=== PATIENT | male | born 1985 | race Caucasian/White ===

== ENCOUNTER 2016-08-02 17:27 | Observation (INO) | payer BC, OTHER ==
[~2016-08-02] VITALS: Ht 180.3 cm; Wt 111.0 kg
[2016-08-02 18:31] LABS: BASO % 0.1 %; BASO ABS # 0.02 K/uL (0-0.2); COMPLETE YES; EOS % 0.1 %; IG% 0.4 %; LYMPH % 8.9 %; MEAN CELL VOLUME 83.2 fL (80-100); MEAN CORPUSCULAR HEMOGLOBIN 29.6 pg (25-34); MEAN CORPUSCULAR HGB CONC 35.5 g/dl (32-36); MEAN PLATELET VOLUME 8.9 fL (7.4-10.4); NEUT % 81.5 %; PLATELET COUNT 332 K/uL (130-400); RED BLOOD COUNT 5.65 M/uL (4.7-6.1); WHITE BLOOD COUNT 16.87 K/uL (4.8-10.8)
[2016-08-02 18:37] LABS: URINE APPEARANCE CLEAR (CLEAR); URINE BILIRUBIN NEG (NEG); URINE COLOR YELLOW; URINE NITRITE NEG (NEG); URINE SPECIFIC GRAVITY 1.014 (1.000-1.030); UROBILINOGEN NEG (NEG); ZZUR CULT IF INDIC CLEAN CATCH NO
[2016-08-02 18:42] LABS: MANUAL MICROSCOPIC REQUIRED? NO; REVIEW REQ? NO
[2016-08-02] MEDS ORDERED: ONDANSETRON INJ 2 MG/ML 2 ML VIAL IV STA (18:46)
[2016-08-02] MEDS ORDERED: SODIUM CHLORIDE 0.9% 1000ML 1,000 ML IV STA ×2 (18:46)
[2016-08-02] MEDS ORDERED: MoRPHine SULFATE 10 MG/ML CARP/VIAL IV STA (18:46)
[2016-08-02 18:49] LABS: BUN/CREATININE RATIO 9.6 (10-20); CALCIUM 9.4 mg/dl (8.5-10.1); CREATININE 0.88 mg/dl (0.60-1.40); POTASSIUM 3.7 mmol/L (3.5-5.1)
[2016-08-02 18:52] LABS: ALB/GLOB RATIO 1.3 (0.9-2)
[2016-08-02] MEDS ORDERED: MoRPHine SULFATE 4 MG/ML 1 ML CARP\\VIAL IV PRN ×2 (19:00→22:30)
[2016-08-02] MEDS ORDERED: OPTIRAY 320 IV PRN (19:00)
--- NOTE | 2016-08-02 19:39 | DIAGNOSTIC IMAGING REPORT ---
ABDOMEN AND PELVIS CT WITH IV CONTRAST CT DOSE: 1124.69 mGycm HISTORY: Pain RLQ PAIN X 1 DAYS TECHNIQUE: Multiaxial CT images of the abdomen and pelvis were performed following the use of intravenous contrast. COMPARISON STUDY: None. FINDINGS: Lung bases are clear. Liver spleen and pancreas are unremarkable. Kidneys enhance uniformly. No evidence for hydronephrosis. Abdominal bowel pattern is nonobstructive. Posterior and somewhat inferior to the cecum is a distended appendix at 1.3 cm. There is moderate periappendiceal infiltrative change. There is no evidence for abscess collection or obstruction. Evaluation of the low pelvis demonstrates bladder to be midline. There is no evidence for abscess or collection. There is trace amount of free fluid most likely reactive. IMPRESSION: 1. Acute appendicitis. 2. Moderate periappendiceal infiltrative change. 3. No evidence for abscess collection or obstruction. Electronically signed by: John Aguero M.D. 08/02/2016 7:38 PM Dictated Date/Time: 08/02/2016 7:36 PM
--- NOTE | 2016-08-02 19:43 | EMERGENCY ROOM VISIT NOTE ---
History First contact with patient: 18:19 Chief Complaint: ABDOMINAL PAIN Stated Complaint: ABDOMINAL PAIN RT SIDE, STABBING PAIN History of Present Illness 31-year-old white male with past medical history significant for hypertension who presents to emergency department for evaluation of right lower quadrant pain 24 hours. He notes a constant, dull aching right lower quadrant pain that started last evening. He had difficulty sleeping last night due to the pain. He states it radiates slightly to the left lower quadrant, and at times can become sharp and stabbing. He notes indigestion and increased belching, although has noticed decreased flatus. He has been nauseous, but has not vomited. Last bowel movement was about 4 hours ago and was normal per the patient. He denies any fever. He tried using Gas-X and Rolaids without relief of his symptoms. He presently rates his discomfort a 6/10. He has a history of stomach problems, states that he was diagnosed with IBS when he was younger. It was advised that he go on Prilosec for his upper GI symptoms, but reports she did not take the medication secondary to cost. He is also prescribed lisinopril/hydrochlorothiazide for hypertension, but stopped this several months ago. He denies any dysuria, frequency or urgency. No hematuria. He denies any melena, hematochezia or diarrhea. Review of Systems Review of systems as per HPI. All other systems reviewed were negative. 10 systems reviewed. Past Medical/Surgical History Medical Problems: (1) Hypertension (2) Stomach problems Surgical Problems: (1) History of tonsillectomy Electronic medical records are reviewed and summarized as above/below. See Problem List. Social History Smoking Status: Never Smoker Alcohol Use: none Marital Status: single Housing Status: lives with family Occupation Status: employed Current/Historical Medications No Active Prescriptions or Reported Meds Allergies Coded Allergies: No Known Allergies (Unverified , 08/02/16) Physical Exam Vital Signs Date Time Temp Pulse Resp B/P (MAP) Pulse Ox O2 Delivery O2 Flow Rate FiO2 08/02/16 19:14 73 16 141/94 97 Room Air 08/02/16 17:31 36.8 89 18 180/103 96 Room Air Physical Exam CONSTITUTIONAL: Patient is a 31-year-old white male who is awake and alert and in mild distress. He is noted to be hypertensive with a blood pressure 180/103. EYES: Pupils equal, round, reactive to light and accommodation. EOMs intact without nystagmus. Sclera are anicteric. ENT: Tympanic membranes intact, with normal landmarks. External canals are clear. Oral and nasopharynx are clear. Mucous membranes are moist, no lesions , tongue and gums appear normal. NECK: Supple without lymphadenopathy. No thyromegaly. No meningeal signs. Full active range of motion without discomfort. CARDIOVASCULAR: Regular rate and rhythm, with normal S1 and S2, no murmur or gallop or rub is heard. No carotid bruits auscultated. No JVD. Peripheral pulses easily palpable. RESPIRATORY: Breath sounds equal and clear to auscultation without wheezes, rales, or rhonchi heard. Full and equal chest expansion without accessory muscle use or retractions. ABDOMEN: Bowel sounds are present. Abdomen is soft, nondistended, exquisitely tender to palpation in the right lower quadrant with guarding. No rigidity. No referred rebound tenderness. He does not have any pain in the right upper quadrant. INTEGUMENTARY: No lesions or rash, normal skin turgor. LYMPH: No lymphadenopathy. Medical Decision & Procedures ER Provider Diagnostic Interpretation: ABDOMEN AND PELVIS CT WITH IV CONTRAST CT DOSE: 1124.69 mGycm HISTORY: Pain RLQ PAIN X 1 DAYS TECHNIQUE: Multiaxial CT images of the abdomen and pelvis were performed following the use of intravenous contrast. COMPARISON STUDY: None. FINDINGS: Lung bases are clear. Liver spleen and pancreas are unremarkable. Kidneys enhance uniformly. No evidence for hydronephrosis. Abdominal bowel pattern is nonobstructive. Posterior and somewhat inferior to the cecum is a distended appendix at 1.3 cm. There is moderate periappendiceal infiltrative change. There is no evidence for abscess collection or obstruction. Evaluation of the low pelvis demonstrates bladder to be midline. There is no evidence for abscess or collection. There is trace amount of free fluid most likely reactive. IMPRESSION: 1. Acute appendicitis. 2. Moderate periappendiceal infiltrative change. 3. No evidence for abscess collection or obstruction. Laboratory Results 08/02/16 18:20 Red Blood Count 5.65, Mean Corpuscular Volume 83.2, Mean Corpuscular Hemoglobin 29.6, Mean Corpuscular Hemoglobin Concent 35.5, Mean Platelet Volume 8.9, Neutrophils (%) (Auto) 81.5, Lymphocytes (%) (Auto) 8.9, Monocytes (%) (Auto) 9.0, Eosinophils (%) (Auto) 0.1, Basophils (%) (Auto) 0.1, Neutrophils # (Auto) 13.76, Lymphocytes # (Auto) 1.50, Monocytes # (Auto) 1.51, Eosinophils # (Auto) 0.02, Basophils # (Auto) 0.02 08/02/16 18:20 Test 08/02/16 18:20 White Blood Count 16.87 K/uL (4.8-10.8) Red Blood Count 5.65 M/uL (4.7-6.1) Hemoglobin 16.7 g/dL (14.0-18.0) Hematocrit 47.0 % (42-52) Mean Corpuscular Volume 83.2 fL (80-100) Mean Corpuscular Hemoglobin 29.6 pg (25-34) Mean Corpuscular Hemoglobin Concent 35.5 g/dl (32-36) Platelet Count 332 K/uL (130-400) Mean Platelet Volume 8.9 fL (7.4-10.4) Neutrophils (%) (Auto) 81.5 % Lymphocytes (%) (Auto) 8.9 % Monocytes (%) (Auto) 9.0 % Eosinophils (%) (Auto) 0.1 % Basophils (%) (Auto) 0.1 % Neutrophils # (Auto) 13.76 K/uL (1.4-6.5) Lymphocytes # (Auto) 1.50 K/uL (1.2-3.4) Monocytes # (Auto) 1.51 K/uL (0.11-0.59) Eosinophils # (Auto) 0.02 K/uL (0-0.5) Basophils # (Auto) 0.02 K/uL (0-0.2) RDW Standard Deviation 36.6 fL (36.4-46.3) RDW Coefficient of Variation 12.0 % (11.5-14.5) Immature Granulocyte % (Auto) 0.4 % Immature Granulocyte # (Auto) 0.06 K/uL (0.00-0.02) Urine Color YELLOW Urine Appearance CLEAR (CLEAR) Urine pH 6.0 (4.5-7.5) Urine Specific [place] 1.014 (1.000-1.030) Urine Protein NEG (NEG) Urine Glucose (UA) NEG (NEG) Urine Ketones NEG (NEG) Urine Occult Blood TRACE (NEG) Urine Nitrite NEG (NEG) Urine Bilirubin NEG (NEG) Urine Urobilinogen NEG (NEG) Urine Leukocyte Esterase NEG (NEG) Urine WBC (Auto) 1-5 /hpf (0-5) Urine RBC (Auto) 0-4 /hpf (0-4) Urine Hyaline Casts (Auto) 1-5 /lpf (0-5) Urine Epithelial Cells (Auto) 5-10 /lpf (0-5) Urine Bacteria (Auto) NEG (NEG) Anion Gap 10.0 mmol/L (3-11) Est Creatinine Clear Calc Drug Dose 154.1 ml/min Estimated GFR () 132.7 Estimated GFR (Non- 114.5 BUN/Creatinine Ratio 9.6 (10-20) Calcium Level 9.4 mg/dl (8.5-10.1) Total Bilirubin 0.9 mg/dl (0.2-1) Aspartate Amino Transf (AST/SGOT) 14 U/L (15-37) Alanine Aminotransferase (ALT/SGPT) 26 U/L (12-78) Alkaline Phosphatase 56 U/L (45-117) Total Protein 8.5 gm/dl (6.4-8.2) Albumin 4.8 gm/dl (3.4-5.0) Globulin 3.7 gm/dl (2.5-4.0) Albumin/Globulin Ratio 1.3 (0.9-2) Lipase 95 U/L (73-393) Medications Administered Medications (Trade) Dose Ordered Sig/Bart Route Start Time Stop Time Status Last Admin Dose Admin Sodium Chloride 1,000 ml @ 999 mls/hr Q1H1M STAT IV 08/02/16 18:46 08/02/16 19:46 DC 08/02/16 19:13 999 MLS/HR Ondansetron HCl (Zofran Inj) 4 mg NOW STAT IV 08/02/16 18:46 08/02/16 18:50 DC 08/02/16 19:13 4 MG Morphine Sulfate (MoRPHine SULFATE INJ) 6 mg NOW STAT IV 08/02/16 18:46 08/02/16 18:50 DC 08/02/16 19:13 6 MG ED Course The patient was seen and evaluated as above. He has no old records at our facility for review. IV lock was initiated. CBC with differential, CMP, lipase and urinalysis were collected. He was made NPO. He was hydrated with normal saline solution and medicated with morphine 6 mg and Zofran 4 mg IV. Laboratory studies noted a leukocytosis of 16,800, with left shift. No gross electrolyte, liver function or renal function abnormalities are noted. Lipase is normal. Urinalysis notes trace occult blood, no other indicators for infection. CT scan of the abdomen and pelvis with IV contrast noted a distended appendix at 1.3 cm with moderate periappendiceal infiltrative change. No abscess collection or obstruction. Consultation was placed with Dr. Stevens of general surgery. Patient was ordered Mefoxin 2 g IV. Patient was reviewed with ED attending physician. He will go to the OR per general surgery. Medication reconciliation: I attest that I have personally reviewed the patient' s current medication list. Blood pressure screening: Patient has been diagnosed with hypertension and is noncompliant with his medications. He was found to have an elevated blood pressure and was referred to their primary doctor for recheck and further treatment. Medical Decision Differential diagnoses entertained included UTI, pyelonephritis, renal colic, appendicitis, bowel obstruction, perforation, abscess, hernia, among others. Impression Primary Impression: Appendicitis Departure Information Dispostion Being Evaluated By Surgeon Prescriptions No Active Prescriptions or Reported Meds Referrals Leonel Dudley M.D.([facility]) (PCP) Patient Instructions [facility]
[2016-08-02] MEDS ORDERED: CEFOXITIN 2000MG/60 ML D5W IV STA (19:49)
[2016-08-02] MEDS ORDERED: NEOSTIGMINE METHYLSULFATE 5 MG/5 ML SYR ONE (20:18)
[2016-08-02] MEDS ORDERED: DEXAMETHASONE SOD INJ 4 MG/ML VIAL ONE (20:18)
[2016-08-02] MEDS ORDERED: GLYCOPYRROLATE INJ 0.2 MG/ML VIAL ONE (20:18)
[2016-08-02] MEDS ORDERED: ROCURONIUM BROMIDE 10 MG/ML 5 ML VIAL ONE (20:18)
[2016-08-02] MEDS ORDERED: PROPOFOL IV EMULSION 10 MG/ML 20 ML VIAL IV ONE (20:18)
[2016-08-02] MEDS ORDERED: SUCCINYLCHOLINE CHLORIDE 20 MG/ML 10 ML VIAL IV ONE (20:18)
[2016-08-02] MEDS ORDERED: ONDANSETRON INJ 2 MG/ML 2 ML VIAL ONE (20:18)
[2016-08-02] MEDS ORDERED: MIDAZOLAM HCL 1 MG/ML 2ML VIAL ONE (20:19)
[2016-08-02] MEDS ORDERED: FENTANYL CITRATE INJ 50 MCG/1 ML 2 ML VIAL ONE (20:19)
[2016-08-02] MEDS ORDERED: BUPIVACAINE/EPINEPHRINE 0.5% MPF 1:200,000 30 ML VIAL ONE (20:31)
--- NOTE | 2016-08-02 20:49 | History and Physical ---
History & Physical Date Aug 02, 2016. History of Present Illness The patient is a 31 year old male with complaints of abdominal pain which he states he has had intermittently for years. got worse this am. pain is in RLQ Past Medical/Surgical History Medical Problems: (1) Hypertension (2) Stomach problems Surgical Problems: (1) History of tonsillectomy Additional History Hepatic Disease: No Endocrine Disorder: No Kidney Disease: No Hypertension: No Heart Disease: No Bleeding Tendencies: No Infectious Diseases: No Allergies Coded Allergies: No Known Allergies (Unverified , 08/02/16) Home Medications No Active Prescriptions or Reported Meds Physical Examination Skin: warm/dry Eyes: normal inspection, EOMI Head: normocephalic Neck: supple, trachea midline Respiratory/Chest: no respiratory distress Cardiovascular: regular rate, rhythm Abdomen / GI: + pertinent finding (+RLQ ttp. +guarding/rebound) Extremities: normal inspection Neurologic/Psych: alert, oriented x 3 Diagnosis acute appendicitis discussed risks/options. discussed ( bleeding/infection/dvt/pe/mi/injury to another organ such as bowel/ bladder etc...). answered questions. ok to proceed.
--- NOTE | 2016-08-02 22:15 | [facility] Operative Report ---
Operative Report Operative Date Aug 02, 2016. Pre-Operative Diagnosis Acute Appendicitis Post-Operative Diagnosis same Procedure(s) Performed lap appy Surgeon Dr. Stevens Estimated Blood Loss 10ml Findings acute appendicitis Specimens A. Appendix Anesthesia get Complication(s) None Disposition Recovery Room / PACU I attest to the content of the Intraoperative Record and any orders documented therein. Any exceptions are noted below.
[2016-08-02] MEDS ORDERED: HYDROCODONE/ACETAMOPHEN 5/325MG TAB PO PRN (22:30)
[2016-08-02] MEDS ORDERED: MoRPHine SULFATE 2 MG/ML CARP IV PRN (22:30)
[2016-08-02] MEDS ORDERED: IBUPROFEN 600 MG TAB PO PRN (22:30)
[2016-08-02] MEDS ORDERED: ONDANSETRON INJ 2 MG/ML 2 ML VIAL IV PRN (22:30)
[2016-08-02] MEDS ORDERED: DiphenhydrAMINE HCL 50 MG/ML VIAL IV PRN (22:30)
--- NOTE | 2016-08-02 22:49 | Anesthesiology Progress Note ---
Anesthesia Post Op Note Date & Time Aug 02, 2016 at 22:48 Vital Signs Pain Intensity: 4 Vital Signs Past 12 Hours Date Time Temp Pulse Resp B/P (MAP) Pulse Ox O2 Delivery O2 Flow Rate FiO2 08/02/16 22:40 87 16 138/91 98 Mask 8 08/02/16 22:30 78 18 139/85 98 Mask 8 08/02/16 22:24 36.3 99 16 149/99 98 Mask 8 08/02/16 20:50 36.8 72 16 123/73 100 08/02/16 20:45 72 16 123/73 100 Room Air 08/02/16 19:14 73 16 141/94 97 Room Air 08/02/16 17:31 36.8 89 18 180/103 96 Room Air Notes Mental Status: alert / awake / arousable, participated in evaluation Pt Amnestic to Procedure: Yes Nausea / Vomiting: adequately controlled Pain: adequately controlled Airway Patency, RR, SpO2: stable & adequate BP & HR: stable & adequate Hydration State: stable & adequate Anesthetic Complications: no major complications apparent
[2016-08-02 23:25] VITALS: BP 158/92; PULSE 81; TEMP 37.1; O2SAT 94; Ht 180.3 cm; Wt 111.0 kg
[2016-08-02] MEDS ORDERED: IV FLUIDS COMPLETED PRN (23:45)
[2016-08-02 23:55] VITALS: BP 103/63; PULSE 73; TEMP 36.8; O2SAT 97
[2016-08-02] MEDS: D5W AND 1/2NSS + 20MEQ KCL 1,000 ML IV SCH (23:58)
[2016-08-03] VITALS (7 sets, daily range): BP systolic 95–119; BP diastolic 55–72; PULSE 64–83; TEMP 36.5–36.8; O2SAT 95–97
[2016-08-03] MEDS: HYDROCODONE/ACETAMOPHEN 5/325MG TAB PO PRN ×3 (01:26→12:55)
--- NOTE | 2016-08-03 02:05 | OPERATIVE REPORT ---
DATE OF OPERATION: 08/02/2016 PREOPERATIVE DIAGNOSIS: Acute appendicitis. POSTOPERATIVE DIAGNOSIS: Same. PROCEDURE: Laparoscopic appendectomy. SURGEON: Abhishek Stevens DO. ESTIMATED BLOOD LOSS: Approximately 10 mL. COMPLICATIONS: No immediate. ANESTHESIA: General. The patient tolerated the procedure well. OPERATIVE NOTE: After informed consent was obtained, the patient was taken to the operating suite, placed in the supine position. After successful intubation, the abdomen was shaved and sterilely prepped and draped in usual fashion. A periumbilical incision was made with an 11 blade scalpel and carried down through the soft tissue using electrocautery. The anterior rectus fascia was opened using electrocautery, and two #0 Vicryl stay sutures were placed. Peritoneum was entered using blunt finger penetration. A finger sweep was performed. A 12 mm James trocar was placed, and the abdomen was insufflated to 20 mmHg. Laparoscope was inserted, and the abdomen examined 360 degrees. A suprapubic 5 mm port and a left lower quadrant 12 mm port were placed under direct vision. The patient was placed in a Trendelenburg position and slightly airplaned to the left. There was no free fluid or succuss. There was acute inflammation in the right lower quadrant near the cecum. As we peeled away some omentum, exposed an acutely inflamed appendix. We were able to rather easily grab it by its base and rotate it medially. I was able to take a [place] dissector and create a small window in the mesoappendix. A DEBORAH purple cartridge linear stapler was used to transect the appendix at its base. A second firing of the same stapler was used to take down the mesoappendix. It was placed into an EndoCatch bag and removed from the camera port site. We did irrigate the pelvis and right lower quadrant. I ran the small bowel backwards for about 3 feet. A look around the abdomen showed no other gross abnormalities. There was adequate hemostasis at the end of the procedure. All the trocars were removed, and the abdomen was desufflated. The fascia of the camera port was closed using 0 Vicryl in a [id number] fashion. The fascia of the left lower quadrant incision was closed with an interrupted 0 Vicryl stitch. Wounds were all irrigated and closed using 4-0 Monocryl. Marcaine was injected around them for postoperative analgesia and skin glue used as a dressing. The patient was awakened, extubated and transferred to Recovery in stable condition. I attest to the content of the Intraoperative Record and any orders documented therein. Any exception s are noted below.
[2016-08-03] MEDS: CEFOXITIN IV 1,000 MG in DEXTROSE 5% 50ML 50 ML IV SCH ×2 (02:56→08:32)
[2016-08-03 06:44] LABS: BASO % 0.1 %; BASO ABS # 0.01 K/uL (0-0.2); COMPLETE YES; HEMATOCRIT 44.5 % (42-52); IG% 0.2 %; LYMPH % 7.5 %; LYMPH ABS # 1.02 K/uL (1.2-3.4); MEAN CELL VOLUME 85.4 fL (80-100); MEAN CORPUSCULAR HGB CONC 33.9 g/dl (32-36); MEAN PLATELET VOLUME 8.9 fL (7.4-10.4); MONO % 7.7 %; NEUT % 84.5 %; PLATELET COUNT 313 K/uL (130-400); RED BLOOD COUNT 5.21 M/uL (4.7-6.1); WHITE BLOOD COUNT 13.63 K/uL (4.8-10.8)
[2016-08-03] MEDS: D5W AND 1/2NSS + 20MEQ KCL 1,000 ML IV SCH (07:18)
--- NOTE | 2016-08-03 09:01 | Surgery Progress Note ---
Surgery Progress Note Date of Service Aug 03, 2016. Subjective Post OP Day: 1 + feeling well doing well. out of bed. pain is minimal. Objective Vital Signs: Date Time Temp Pulse Resp B/P (MAP) Pulse Ox O2 Delivery O2 Flow Rate FiO2 08/03/16 08:01 Room Air 08/03/16 07:46 36.5 68 18 105/65 (78) 96 Room Air 08/03/16 04:31 36.6 83 16 95/55 (68) 97 Room Air 08/03/16 02:25 36.8 64 16 119/72 (88) 96 Room Air 08/03/16 01:25 36.7 74 18 112/67 (82) 95 Room Air 08/03/16 00:24 36.6 77 16 116/72 (87) 97 Nasal Cannula 2.0 08/02/16 23:55 36.8 73 18 103/63 (76) 97 Nasal Cannula 2.0 08/02/16 23:25 94 Nasal Cannula 3.0 08/02/16 23:25 Nasal Cannula 3.0 08/02/16 23:25 37.1 81 16 158/92 94 Nasal Cannula 3.0 08/02/16 23:10 85 17 127/93 99 Nasal Cannula 3 08/02/16 23:00 36.7 79 16 124/87 99 Nasal Cannula 3 08/02/16 22:50 79 16 133/81 97 Nasal Cannula 3 08/02/16 22:40 87 16 138/91 98 Mask 8 08/02/16 22:30 78 18 139/85 98 Mask 8 08/02/16 22:24 36.3 99 16 149/99 98 Mask 8 08/02/16 20:50 36.8 72 16 123/73 100 08/02/16 20:45 72 16 123/73 100 Room Air 08/02/16 19:14 73 16 141/94 97 Room Air 08/02/16 17:31 36.8 89 18 180/103 96 Room Air General Appearance: no apparent distress Abdomen: non distended, soft, + pertinent finding (expected tenderness) Incision(s): clean, dry, intact Laboratory Results: Results Past 24 Hours Test 08/02/16 18:20 08/03/16 06:18 Range/Units White Blood Count 16.87 13.63 4.8-10.8 K/uL Red Blood Count 5.65 5.21 4.7-6.1 M/uL Hemoglobin 16.7 15.1 14.0-18.0 g/dL Hematocrit 47.0 44.5 42-52 % Mean Corpuscular Volume 83.2 85.4 80-100 fL Mean Corpuscular Hemoglobin 29.6 29.0 25-34 pg Mean Corpuscular Hemoglobin Concent 35.5 33.9 32-36 g/dl Platelet Count 332 313 130-400 K/uL Mean Platelet Volume 8.9 8.9 7.4-10.4 fL Neutrophils (%) (Auto) 81.5 84.5 % Lymphocytes (%) (Auto) 8.9 7.5 % Monocytes (%) (Auto) 9.0 7.7 % Eosinophils (%) (Auto) 0.1 0.0 % Basophils (%) (Auto) 0.1 0.1 % Neutrophils # (Auto) 13.76 11.52 1.4-6.5 K/uL Lymphocytes # (Auto) 1.50 1.02 1.2-3.4 K/uL Monocytes # (Auto) 1.51 1.05 0.11-0.59 K/uL Eosinophils # (Auto) 0.02 0.00 0-0.5 K/uL Basophils # (Auto) 0.02 0.01 0-0.2 K/uL RDW Standard Deviation 36.6 38.1 36.4-46.3 fL RDW Coefficient of Variation 12.0 12.2 11.5-14.5 % Immature Granulocyte % (Auto) 0.4 0.2 % Immature Granulocyte # (Auto) 0.06 0.03 0.00-0.02 K/uL Urine Color YELLOW Urine Appearance CLEAR CLEAR Urine pH 6.0 4.5-7.5 Urine Specific [place] 1.014 1.000-1.030 Urine Protein NEG NEG Urine Glucose (UA) NEG NEG Urine Ketones NEG NEG Urine Occult Blood TRACE NEG Urine Nitrite NEG NEG Urine Bilirubin NEG NEG Urine Urobilinogen NEG NEG Urine Leukocyte Esterase NEG NEG Urine WBC (Auto) 1-5 0-5 /hpf Urine RBC (Auto) 0-4 0-4 /hpf Urine Hyaline Casts (Auto) 1-5 0-5 /lpf Urine Epithelial Cells (Auto) 5-10 0-5 /lpf Urine Bacteria (Auto) NEG NEG Sodium Level 137 136-145 mmol/L Potassium Level 3.7 3.5-5.1 mmol/L Chloride Level 103 98-107 mmol/L Carbon Dioxide Level 24 21-32 mmol/L Anion Gap 10.0 3-11 mmol/L Blood Urea Nitrogen 8 7-18 mg/dl Creatinine 0.88 0.60-1.40 mg/dl Est Creatinine Clear Calc Drug Dose 154.1 ml/min Estimated GFR () 132.7 Estimated GFR (Non- 114.5 BUN/Creatinine Ratio 9.6 10-20 Random Glucose 108 70-99 mg/dl Calcium Level 9.4 8.5-10.1 mg/dl Total Bilirubin 0.9 0.2-1 mg/dl Aspartate Amino Transf (AST/SGOT) 14 15-37 U/L Alanine Aminotransferase (ALT/SGPT) 26 12-78 U/L Alkaline Phosphatase 56 45-117 U/L Total Protein 8.5 6.4-8.2 gm/dl Albumin 4.8 3.4-5.0 gm/dl Globulin 3.7 2.5-4.0 gm/dl Albumin/Globulin Ratio 1.3 0.9-2 Lipase 95 73-393 U/L Assessment & Plan POD#1 lap appy wbc decreased looks good. ok for d/c after lunch. instructions given.
[2016-08-03] MEDS ORDERED: HYDR-5688 PO ×2 (09:06→09:16)
--- NOTE | 2016-08-03 09:12 | Discharge Instructions ---
Discharge Instructions Date of Service Aug 03, 2016. Admission Reason for Admission: Appendicitis Discharge Discharge Diagnosis / Problem: Appendicitis Discharge Goals Goal(s): Decrease discomfort, Improve function Activity Recommendations Activity Limitations: as noted below Lifting Limitations: no more than 10 pounds Exercise/Sports Limitations: until after follow-up appointment May Resume Sexual Activity: after follow-up appointment Shower/Bathe: tomorrow Driving or Machine Use: resume 1 day after discharge . Instructions / Follow-Up Instructions / Follow-Up No lifting over 10lbs until you return to see Dr. Stevens in the office. Please follow-up with Dr. Stevens in the office in 1-2 weeks. Please call the office at [phone] to make an appointment. Our office is located at [address] [place], [place] [address] [address]. Please call the office at [phone] with any questions or concerns. Current Hospital Diet Patient's current hospital diet: Regular Diet Discharge Diet Recommended Diet: Regular Diet Procedures Procedures Performed: Laparoscopic Appendectomy Pending Studies Studies pending at discharge: no Medical Emergencies . Who to Call and When: Medical Emergencies: If at any time you feel your situation is an emergency, please call 911 immediately. . Non-Emergent Contact Non-Emergency issues call your: Primary Care Provider, Surgeon Call Non-Emergent contact if: temperature is above 101.5, your pain is not controlled, wound has increased drainage, wound has increased redness . "Provider Documentation" section prepared by Drea Dooley. . VTE Core Measure Inpt VTE Proph given/why not?: SCD's [place] Drug Monitoring Program Search Results: patient reviewed within database, no issues identified
--- NOTE | 2016-08-03 10:06 | Discharge Summary ---
Discharge Summary Date of Service Aug 03, 2016. Admission Date/Reason Aug 02, 2016 at 22:21 Appendicitis. Discharge Date/Disposition Aug 03, 2016 Home Diagnosis Principal Diagnosis: 1. Appendicitis Secondary Diagnoses/Problems: 1. Hypertension 2. Stomach problems. Surgical History: 1. History of Tonsillectomy. Procedure(s) Performed Laparoscopic Appendectomy with Dr. Stevens. Medication Reconciliation 1. [place] 5MG/325MG Tab 1-2 tabs PO Q4H PRN pain #30. Admission Physical Exam As per Admitting History & Physical. Hospital Course Mr. Herzog is a 31-year-old male who presented to the [facility] ED with complaints of abdominal pain. Patient reports that he has had this pain intermittently for the past few years. He reported that the pain got worse prior to reporting to ED. Pain was located in right lower quadrant. On admission, patient's WBC was elevated at 16.87. Abdominal CT with IV contrast revealed showed 1. Acute appendicitis. 2. Moderate periappendiceal infiltrative change. 3. No evidence for abscess collection or obstruction. Dr. Stevens evaluated patient and decided to proceed with Laparoscopic Appendectomy. Pre-Operative Diagnosis: Acute Appendicitis. Post-Operative Diagnosis: Acute Appendicitis Procedure: Laparoscopic Appendectomy Patient tolerated procedure well- No perforation of appendix. Post-Operatively patient did well. WBC decreased from 16.87 to 13.63. Pain controlled. Patient tolerated a regular diet. Discharge instructions were provided to patient. Prescription for pain medication provided on discharge. No antibiotics indicated. Patient to follow-up with Dr. Stevens in the office in 1-2 weeks. Discharge Instructions Please refer to the electronic Patient Visit Report (Discharge Instructions) for additional information.
== END 2016-08-03 13:35 | disposition home or self-care (01) ==
LOC: C.EDB 17:29 → C.MSN 22:21 → ENRESERV 22:47
PROVIDERS: ADMIT Surgery; ATTEND Surgery
DX: K37 Unspecified appendicitis (principal); I10 Essential (primary) hypertension; Z90.89 Acquired absence of other organs; E66.9 Obesity, unspecified; Z68.34 Body mass index [BMI] 34.0-34.9, adult